=== PATIENT | male | born 1990 | race African-American/Black ===

== ENCOUNTER 2024-04-29 09:26 | Inpatient (IN) | payer OTHER ==
[~2024-04-29] VITALS: Ht 193 cm; Wt 105.0 kg
[2024-04-29 10:05] LABS: Basophils # (auto) 0 10 ^3/uL (0-0.2); Basophils % (auto) 0.3 % (0.0-2.0); Eosinophils # (auto) 0 10 ^3/uL (0-0.8); Eosinophils % (auto) 0.5 % (0.0-7.0); Hematocrit 42.6 % (41.0-53.0); Hemoglobin 14.5 g/dL (13.5-17.5); Lymphocytes # (auto) 0.3 10 ^3/uL (0.4-5.4); Lymphocytes % (auto) 3.2 % (10.0-50.0); Mean Corpuscular Hemoglobin 29.6 pg (28.0-32.0); Mean Corpuscular Hgb Conc. 34.2 g/dL (32.0-36.0); Mean Corpuscular Volume 86.6 fL (80.0-100.0); Monocytes # (auto) 0.8 10 ^3/uL (0-1.3); Monocytes % (auto) 8.8 % (0.0-12.0); Neutrophils # (auto) 8.1 10 ^3/uL (1.6-8.6); Neutrophils % (auto) 87.2 % (37.0-80.0); Nucleated Red Blood Cells % 0.1 %; Platelet Count (auto) 190 10^3/uL (140-450); Red Blood Cells 4.92 10^6/uL (4.5-5.90); Red Cell Distribution Width 11.8 % (11.8-14.3); White Blood Cell 9.3 10^3/uL (4.4-10.8)
--- NOTE | 2024-04-29 10:16 | ED.PDOC ---
History of Present Illness HPI Comments 33Y M with PMHx appendectomy presents to ED via EMS for chief complaint abd pain x1 day. Additional symptoms include cough, n/v/d, chills, headache, fatigue, and hiccups. Pt denies chest pain and SOB. Pt denies sick contact. No known allergies. Chief Complaint: Abdominal Pain Time Seen by MD: 09:30 Primary Care Provider: none Reviewed Notes: Packing Shed Supervisor Notes, Medications, Allergies Allergies: Coded Allergies: NO KNOWN ALLERGIES (Unverified , 04/29/24) Information Source: Patient, Emergency Med Personnel Mode of Arrival: EMS Severity: Moderate Timing: Days Duration: Since onset Prehospital treatment: Other Past Medical History PAST MEDICAL HISTORY: Denies Surgical History: Appendectomy Family History Family History: Unknown Social History Smoker: Non-Smoker Alcohol: Denies ETOH Use Drugs: Denies Drug Use Lives In: Home Constitutional: reports: chills, fatigue; denies: diaphoresis, fever, malaise, sweats, weakness, others EENTM: denies: blurred vision, double vision, ear bleeding, ear discharge, ear drainage, ear pain, ear ringing, eye pain, eye redness, hearing loss, mouth pain, mouth swelling, nasal discharge, nose bleeding, nose congestion, nose pain, photophobia, tearing, throat pain, throat swelling, voice changes, others Respiratory: reports: cough; denies: hemoptysis, orthopnea, SOB at rest, shortness of breath, SOB with excertion, stridor, wheezing, others Cardiovascular: denies: chest pain, dizzy spells, diaphoresis, Dyspnea on exertion, edema, irregular heart beat, left arm pain, lightheadedness, palpitations, PND, syncope, others Gastrointestinal: reports: abdominal pain, diarrhea, nausea, vomiting; denies: abdomen distended, blood streaked bowels, constipated, dysphagia, difficulty swallowing, hematemesis, melena, poor appetite, poor fluid intake, rectal bleeding, rectal pain, others Genitourinary: denies: burning, dysuria, flank pain, frequency, hematuria, incontinence, penile discharge, penile sore, pain, testicle pain, testicle swelling, urgency, others Neurological: reports: headache; denies: dizziness, fainting, left sided numbness, left sided weakness, numbness, paresthesia, pre-existing deficit, right sided numbness, right sided weakness, seizure, speech problems, tingling, tremors, weakness, others Musculoskeletal: denies: back pain, gout, joint pain, joint swelling, muscle pain, muscle stiffness, neck pain, others Integumetry: denies: bruises, change in color, change in hair/nails, dryness, laceration, lesions, lumps, rash, wounds, others Allergic/Immunocompromised: denies: Difficulty Healing, Frequent Infections, Hives, Itching, others Hematologic/Lymphatic: denies: anemia, blood clots, easy bleeding, easy bruising, swollen glands, others Endocrine: denies: excessive hunger, excessive sweating, excessive thirst, excessive urination, flushing, intolerance to cold, intolerance to heat, unexplained weight gain, unexplained weight loss, others Psychiatric: denies: anxiety, bipolar disorder, depression, hopeless, panic disorder, schizophrenia, sleepless, suicidal, others All Other Systems: Reviewed and Negative Physical Exam General Appearance: Moderate Distress, Normal HEENT: Normal ENT Inspection, Pharynx Normal, TMs Normal Neck: Full Range of Motion, Non-Tender, Normal, Normal Inspection Respiratory: Chest Non-Tender, Lungs Clear, No Accessory Muscle Use, No Respiratory Distress, Normal Breath Sounds Cardiovascular: No Edema, No JVD, No Murmur, No Gallop, Normal Peripheral Pulses, Tachycardia Breast Exam: Deferred Gastrointestinal: No Organomegaly, Non Tender, No Pulsatile Mass, Normal Bowel Sounds, Soft Genitalia: Deferred Pelvic: Deferred Rectal: Deferred Extremities: No calf tenderness, Normal capillary refill, Normal inspection, Normal range of motion, Non-tender, No pedal edema Musculoskeletal : Apperance: Normal Neurologic: Alert, sole stapler welt II-XII nml as Tested, No Motor Deficits, Normal Affect, Normal Mood, No Sensory Deficits Cerebellar Function: Normal Reflexes: Normal Skin: Dry, Normal Color, Warm Peripheral Pulses: 3+ Radial (R), 3+ Radial (L) Lymphatic: No Adenopathy Was a procedure done? Was a procedure done?: No Differential Dx Considerations may include: Gastroenteritis Electrolyte imbalance X-Ray, Labs, Meds, VS Vital Signs Date Time Temp Pulse Resp B/P (MAP) Pulse Ox O2 Delivery O2 Flow Rate FiO2 04/29/24 12:32 97 16 135/83 04/29/24 11:36 100.5 04/29/24 11:25 100.5 134 22 132/96 (108) 96 100.5 04/29/24 10:21 Room Air* 0 21 04/29/24 09:33 99.6 123 18 144/83 (103) 100 Lab Test 04/29/24 11:11 04/29/24 09:50 Range/Units Urine Opiates Screen Neg NEGATIVE Urine Fentanyl Screen Neg NEGATIVE Urine Barbiturates Screen Neg NEGATIVE Urine Phencyclidine Screen Neg NEGATIVE Urine Amphetamines Screen Neg NEGATIVE Urine Benzodiazepines Screen Neg NEGATIVE Urine Cocaine Screen Neg NEGATIVE Urine Cannabinoids Screen Neg NEGATIVE White Blood Count 9.3 4.4-10.8 10^3/uL Red Blood Count 4.92 4.5-5.90 10^6/uL Hemoglobin 14.5 13.5-17.5 g/dL Hematocrit 42.6 41.0-53.0 % Mean Corpuscular Volume 86.6 80.0-100.0 fL Mean Corpuscular Hemoglobin 29.6 28.0-32.0 pg Mean Corpuscular Hemoglobin Concent 34.2 32.0-36.0 g/dL Red Cell Distribution Width 11.8 11.8-14.3 % Platelet Count 190 140-450 10^3/uL Mean Platelet Volume 8.3 6.9-10.8 fL Neutrophils (%) (Auto) 87.2 H 37.0-80.0 % Lymphocytes (%) (Auto) 3.2 L 10.0-50.0 % Monocytes (%) (Auto) 8.8 0.0-12.0 % Eosinophils (%) (Auto) 0.5 0.0-7.0 % Basophils (%) (Auto) 0.3 0.0-2.0 % Neutrophils # (Auto) 8.1 1.6-8.6 10 ^3/uL Lymphocytes # (Auto) 0.3 L 0.4-5.4 10 ^3/uL Monocytes # (Auto) 0.8 0-1.3 10 ^3/uL Eosinophils # (Auto) 0 0-0.8 10 ^3/uL Basophils # (Auto) 0 0-0.2 10 ^3/uL Nucleated Red Blood Cells 0.1 % Sodium Level 132 L 136-145 mmol/L Potassium Level 4.1 3.5-5.1 mmol/L Chloride Level 98 98-107 mmol/L Carbon Dioxide Level 27 20-31 mmol/L Anion Gap 7 5-15 Blood Urea Nitrogen 7 L 9-23 mg/dL Creatinine 1.24 0.700-1.30 mg/dL Glomerular Filtration Rate Calc 78 >90 mL/min BUN/Creatinine Ratio 5.6 L 10.0-20.0 Serum Glucose 121 H 74-106 mg/dL Calcium Level 10.0 8.7-10.4 mg/dL Current Medications Medications (Trade) Dose Ordered Sig/Priscilla Route Start Time Stop Time Status Last Admin Sodium Chloride 1,000 ml @ 1,000 mls/hr Q1H ONCE IV 04/29/24 11:30 04/29/24 12:29 DC 04/29/24 11:34 Acetaminophen (Tylenol Tablet) 1,000 mg ONCE ONCE PO 04/29/24 11:45 04/29/24 11:46 DC 04/29/24 11:36 Sodium Chloride 1,000 ml @ 1,000 mls/hr Q1H ONCE IV 04/29/24 11:45 04/29/24 12:44 DC 04/29/24 11:45 Sodium Chloride 1,000 ml @ 150 mls/hr Q6H40M ONCE IV 04/29/24 11:45 04/29/24 18:24 04/29/24 11:45 Morphine Sulfate 4 mg ONCE ONCE IV 04/29/24 11:45 04/29/24 11:46 DC 04/29/24 12:32 Ondansetron HCl (Zofran) 4 mg ONCE ONCE IV 04/29/24 11:45 04/29/24 11:46 DC 04/29/24 12:30 Patient alert. Complaining of abdominal pain nausea vomiting. Tachycardia. Saturation pristine on room air. Ambulating. Abdomen is soft nontender. Establish intravenous access. Was given fluids. CT of the abdomen does not show any acute process. Continues to have discomfort. He does have mild fever. Time of 1ST Reevaluation: 10:00 Reevaluation 1ST: Unchanged Patient Education/Counseling: Diagnosis, Treatment Family Education/Counseling: No Family Present Additional Information The following tests were ordered, and results were reviewed by me: CBC, BMP, drug screen Additional Information was gathered from interviewing the following independent historians: EMS I discussed treatment and results with medical personnel. Departure 1 Departure Time of Disposition: 11:34 Impression: Primary Impression: Acute abdominal pain Additional Impressions: Gastroenteritis Tachycardia Disposition: ADMITTED INPATIENT Admit to: Med Surg Condition: Guarded Critical Care Note Critical Care Time?: Yes (45 min-critical care time only) Stability Stability form required: No Heart Score Heart Score: Heart Score Response (Comments) Value History Slightly Suspicious 0 EKG Normal 0 Age <45 0 Risk Factors No known risk factors 0 Troponin Normal limit 0 Total 0 I personally scribed for GISELLE WASHBURN MD ([email or web address]) on 04/29/24 at 10:16. Electronically submitted by Katja Sabillon ([employer]). I personally scribed for GISELLE WASHBURN MD ([email or web address]) on 04/29/24 at 10:46. Electronically submitted by Katja Sabillon ([employer]). GISELLE WASHBURN MD Apr 29, 2024 10:16
[2024-04-29 10:17] LABS: Potassium 4.1 mmol/L (3.5-5.1)
[2024-04-29 10:18] LABS: Anion Gap 7 (5-15); Carbon Dioxide 27 mmol/L (20-31)
[2024-04-29 10:23] LABS: BUN/Creatinine Ratio 5.6 (10.0-20.0)
[2024-04-29 10:39] LABS: Blood Urea Nitrogen 7 mg/dL (9-23); Chloride 98 mmol/L (98-107); Glucose 121 mg/dL (74-106); Sodium 132 mmol/L (136-145)
[2024-04-29] MEDS: SODIUM CHLORIDE 0.9% 1,000 ML IV ONE ×4 (11:34→16:58)
[2024-04-29] MEDS: ACETAMINOPHEN 325 MG TAB PO ONE (11:36)
[2024-04-29 12:14] LABS: Cannabinoid Screen, Urine Neg (NEGATIVE); Cocaine Screen, Urine Neg (NEGATIVE)
[2024-04-29 12:18] LABS: Amphetamine Screen, Urine Neg (NEGATIVE); Barbiturate Scree,Urine Neg (NEGATIVE); Benzodiazephine Screen, Urine Neg (NEGATIVE); Opiate Scree,Urine Neg (NEGATIVE); Phencyclidine Screen, Urine Neg (NEGATIVE)
[2024-04-29] MEDS: ONDANSETRON HCL 4 MG/2 ML VIAL IV ONE (12:30)
[2024-04-29] MEDS: MORPHINE SULFATE 4 MG/ML SYR/VIAL IV ONE (12:32)
--- NOTE | 2024-04-29 14:30 | DVH ---
CHEST RADIOGRAPH Indication: sob Technique: Single frontal view of the chest was obtained Comparison: None FINDINGS: Lines and Tubes: None Lungs: No focal consolidation. Mild diffuse interstitial prominence. Bronchovascular crowding due to low lung volumes. Pleura: No effusion. No pneumothorax. Cardiomediastinal contours: Mild cardiomegaly. Bones: No acute osseous abnormality. IMPRESSION: Bronchovascular crowding due to low lung volumes. Otherwise, no evidence of acute cardiopulmonary di sease
--- NOTE | 2024-04-29 14:31 | DVH ---
CT ABDOMEN AND PELVIS WITHOUT CONTRAST CLINICAL HISTORY: enteritis TECHNIQUE: Multiple contiguous axial images of the abdomen and pelvis without intravenous contrast. The images were reformatted degenerate coronal and sagittal reconstructions. All CT scans at this medical facility are performed using dose modulation techniques as appropriate t o a performed exam including the following:Automated exposure control was utilized; adjustment of the MA and/or KV according to patient size; and use of iterative reconstruction technique. Radiation Dose Information: CT Dose: CTDI volume is 19.17 mGy. Dose-length product is 1128.83 mGy*cm Comparison: None FINDINGS: Evaluation of the abdomen and pelvis is limited without intravenous contrast. The liver is prominent in size with diffuse fatty infiltration of the liver. There is no gross hepati c lesion. The gallbladder, pancreas, kidneys, adrenal glands, and spleen appear within normal limi ts. There is no gross evidence of abdominal lymphadenopathy. There is no free fluid or free air. There is a small fat containing umbilical hernia. The stomach grossly appears unremarkable. The small and large bowel loops demonstrate normal caliber .. There are few scattered diverticula in the distal colon without evidence of acute diverticulitis. The abdominal aorta and IVC appear within normal limits. The bladder appears unremarkable for the degree of distention. Pelvic organ appears within normal sheehan its. There is no gross evidence of a pelvic mass. There is no free fluid collection. Lung bases are clear. There is no acute osseous abnormality. IMPRESSION: 1. There is no acute process in the abdomen and pelvis. 2. Hepatomegaly with diffuse hepatic steatosis. 3. Scattered diverticula in the distal colon. HS:Y
[2024-04-29] MEDS: cefTRIAXone 1GM/50ML D5W 50 ML IV ONE (16:52)
[2024-04-29 17:00] VITALS: TEMP 100; O2SAT 96
[2024-04-29] MEDS ORDERED: MORPHINE SULFATE INJ 2 MG/ml SYRG IV PRN ×2 (17:15→17:45)
[2024-04-29] MEDS ORDERED: ACETAMINOPHEN 325 MG TAB PO PRN (17:15)
[2024-04-29] MEDS ORDERED: ONDANSETRON HCL 4 MG/2 ML VIAL IV PRN (17:15)
[2024-04-29] MEDS: SODIUM CHLORIDE 0.9% 1,000 ML IV SCH (17:15)
[2024-04-29] MEDS ORDERED: DOCUSATE SOD 100 MG CAP PO PRN (17:15)
[2024-04-29] MEDS: ONDANSETRON HCL 4 MG/2 ML VIAL IV PRN (17:26)
[2024-04-29 17:30] VITALS: BP 143/90; PULSE 116; RESP 21
[2024-04-29] MEDS: MORPHINE SULFATE INJ 2 MG/ml SYRG IV PRN (17:30)
--- NOTE | 2024-04-29 17:42 | DVHHP2 ---
History of Present Illness Reason for Visit: Acute abdominal pain History of Present Illness The patient is a 33-year-old male with past medical history of appendicitis status post appendectomy who presented to [facility] ED with complaint of acute abdominal pain. Patient reports symptoms progressively get worse with fatigue, cough, chills, headache, diarrhea, nausea, vomiting, getting worse that prompted this visit. Patient was seen and evaluated in the ED, laboratory data shows WBC 9.3, platelets 190, sodium 132, potassium 4.1, BUN 7, creatinine 1.24, GFR 78, glucose 121, blood pressure 135/83, heart rate 134 trending down to 96, temperature 100.5 F, O2 saturation 96% on room air. Abdome n/pelvis CT showed no acute process of the abdomen or pelvis. Patient was started on IV antibiotic regimen Rocephin, please see medication orders section in the computer. On my assessment, patient denies chest pain, no headache, no dizziness, no diaphoresis, no shortness a breath, no diarrhea, nausea or vomiting at this moment, no fever, no chills. Patient was admitted for further evaluation and medical management. Past Medical History Appendicitis Past Surgical History Appendectomy Family History Reviewed, noncontributory to the management of this case. Past Social History The patient lives at home, denies smoking, alcohol or illicit drugs abuse. Review of Systems Constitutional: Yes: Fever, Chills, Other (Fatigue); No: Sweats, Weakness, Malaise Eyes: No: Pain, Vision change, Conjunctivae inflammation, Eyelid inflammation, Other, Redness ENT: No: Ear pain, Ear discharge, Nose pain, Nose discharge, Nose congestion, Mouth pain, Mouth swelling, Throat pain, Throat swelling, Other Respiratory: Cough; No: Dry, Shortness of breath, SOB with excertion, Wheezing, Hemoptysis, Pleuritic Pain, Sputum, Wheezing, Other Cardiovascular: No: Chest Pain, Palpitations, Orthopnea, Paroxysmal Noc. Dyspnea, Edema, Lt Headedness, Other Gastrointestinal: Nausea, Vomiting, Abdominal Pain, Diarrhea; No: Constipation, Melena, Hematochezia, Other Genitourinary: No Dysuria, No Frequency, No Incontinence, No Hematuria, No Retention, No Other Musculoskeletal: No: other, neck pain, shoulder pain, arm pain, back pain, hand pain, leg pain, foot pain Skin: No: Rash, Lesions, Jaundice, Bruising, Other Neurological: No: Weakness, Numbness, Incoordination, Change in speech, Confusion, Seizures, Other Allergies: Coded Allergies: NO KNOWN ALLERGIES (Unverified , 04/29/24) Medications Current Medications Medications Dose Ordered Sig/Priscilla Route Start Time Stop Time Status Last Admin Dose Admin Ceftriaxone Sodium 50 ml @ 100 mls/hr DAILY@09 IV 04/30/24 09:00 Metronidazole 100 ml @ 100 mls/hr Q8HR IV 04/29/24 22:00 Pantoprazole Sodium 40 mg DAILY IV 04/30/24 10:00 Sodium Chloride 1,000 ml @ 60 mls/hr [id number] IV 04/29/24 17:15 Acetaminophen/ Hydrocodone Bitart 1 tab Q4HP PRN PO 04/29/24 17:15 Ondansetron HCl 4 mg Q4HP PRN IV 04/29/24 17:15 Docusate Sodium 100 mg BIDPRN PRN PO 04/29/24 17:15 Acetaminophen 650 mg Q6HP PRN PO 04/29/24 17:15 Morphine Sulfate 2 mg Q4HPRN PRN IV 04/29/24 17:15 Exam Vital Signs Vital Signs Date Time Temp Pulse Resp B/P (MAP) Pulse Ox O2 Delivery O2 Flow Rate FiO2 04/29/24 17:30 116 21 143/90 04/29/24 15:00 100.0 96 100.0 04/29/24 10:21 Room Air* 0 21 General Appearance: Alert, Oriented X3, Cooperative, No acute distress HEENT: Atraumatic, PERRLA, EOMI, Mucous membr. moist/pink Respiratory: Clear to auscultation, Normal air movement Cardiovascular: Regular rate, Normal S1, Normal S2, No murmurs Abdominal: Normal bowel sounds, Soft, No hepatospenomegaly, No masses, Other (Reports tenderness) Extremities: No clubbing, No cyanosis, No edema, Normal pulses, No tenderness/swelling Skin: No rashes, No breakdown, No significant lesion Neuro: Normal gait, Normal speech, Strength at 5/5 X4 ext, Normal tone, Sensation intact, Cranial nerves 3-12 NL, Reflexes 2+ Psych/Mental Status: Mental status NL, Mood NL Labs/Xrays Labs Test 04/29/24 11:11 04/29/24 09:50 Range/Units Urine Opiates Screen Neg NEGATIVE Urine Fentanyl Screen Neg NEGATIVE Urine Barbiturates Screen Neg NEGATIVE Urine Phencyclidine Screen Neg NEGATIVE Urine Amphetamines Screen Neg NEGATIVE Urine Benzodiazepines Screen Neg NEGATIVE Urine Cocaine Screen Neg NEGATIVE Urine Cannabinoids Screen Neg NEGATIVE White Blood Count 9.3 4.4-10.8 10^3/uL Red Blood Count 4.92 4.5-5.90 10^6/uL Hemoglobin 14.5 13.5-17.5 g/dL Hematocrit 42.6 41.0-53.0 % Mean Corpuscular Volume 86.6 80.0-100.0 fL Mean Corpuscular Hemoglobin 29.6 28.0-32.0 pg Mean Corpuscular Hemoglobin Concent 34.2 32.0-36.0 g/dL Red Cell Distribution Width 11.8 11.8-14.3 % Platelet Count 190 140-450 10^3/uL Mean Platelet Volume 8.3 6.9-10.8 fL Neutrophils (%) (Auto) 87.2 H 37.0-80.0 % Lymphocytes (%) (Auto) 3.2 L 10.0-50.0 % Monocytes (%) (Auto) 8.8 0.0-12.0 % Eosinophils (%) (Auto) 0.5 0.0-7.0 % Basophils (%) (Auto) 0.3 0.0-2.0 % Neutrophils # (Auto) 8.1 1.6-8.6 10 ^3/uL Lymphocytes # (Auto) 0.3 L 0.4-5.4 10 ^3/uL Monocytes # (Auto) 0.8 0-1.3 10 ^3/uL Eosinophils # (Auto) 0 0-0.8 10 ^3/uL Basophils # (Auto) 0 0-0.2 10 ^3/uL Nucleated Red Blood Cells 0.1 % Sodium Level 132 L 136-145 mmol/L Potassium Level 4.1 3.5-5.1 mmol/L Chloride Level 98 98-107 mmol/L Carbon Dioxide Level 27 20-31 mmol/L Anion Gap 7 5-15 Blood Urea Nitrogen 7 L 9-23 mg/dL Creatinine 1.24 0.700-1.30 mg/dL Glomerular Filtration Rate Calc 78 >90 mL/min BUN/Creatinine Ratio 5.6 L 10.0-20.0 Serum Glucose 121 H 74-106 mg/dL Calcium Level 10.0 8.7-10.4 mg/dL PATIENT: ROSA ARECHIGA ACCT: [id number] UNIT: [id number] : 1990 LOC: ER ROOM / BED: / AGE / SEX: 33 / M ADM STATUS: REG ER SERVICE 1331 ORDERING PHYSICIAN: GISELLE WASHBURN MD PROCEDURE(s): ABPL - CT AB PEL WO CON-NO ORAL OR IV REASON: enteritis ORDER NUMBER(s): [id number], ACCESSION NUMBER(s): [id number] CT ABDOMEN AND PELVIS WITHOUT CONTRAST CLINICAL HISTORY: enteritis TECHNIQUE: Multiple contiguous axial images of the abdomen and pelvis without intravenous contrast. The images were reformatted degenerate coronal and sagittal reconstructions. All CT scans at this medical facility are performed using dose modulation techniques as appropriate to a performed exam including the following:Automated exposure control was utilized; adjustment of the MA and/or KV according to patient size; and use of iterative reconstruction technique. Radiation Dose Information: CT Dose: CTDI volume is 19.17 mGy. Dose-length product is 1128.83 mGy*cm Comparison: None FINDINGS: Evaluation of the abdomen and pelvis is limited without intravenous contrast. The liver is prominent in size with diffuse fatty infiltration of the liver. There is no gross hepatic lesion. The gallbladder, pancreas, kidneys, adrenal glands, and spleen appear within normal limits. There is no gross evidence of abdominal lymphadenopathy. There is no free fluid or free air. There is a small fat containing umbilical hernia. The stomach grossly appears unremarkable. The small and large bowel loops demonstrate normal caliber.. There are few scattered diverticula in the distal colon without evidence of acute diverticulitis. The abdominal aorta and IVC appear within normal limits. The bladder appears unremarkable for the degree of distention. Pelvic organ appears within normal limits. There is no gross evidence of a pelvic mass. There is no free fluid collection. Lung bases are clear. There is no acute osseous abnormality. IMPRESSION: 1. There is no acute process in the abdomen and pelvis. 2. Hepatomegaly with diffuse hepatic steatosis. 3. Scattered diverticula in the distal colon. ORDERING PHYSICIAN: GISELLE WASHBURN MD PROCEDURE(s): CXRP - CHEST PORTABLE REASON: sob ORDER NUMBER(s): [id number], ACCESSION NUMBER(s): [id number] CHEST RADIOGRAPH Indication: sob Technique: Single frontal view of the chest was obtained Comparison: None FINDINGS: Lines and Tubes: None Lungs: No focal consolidation. Mild diffuse interstitial prominence. Bronchovascular crowding due to low lung volumes. Pleura: No effusion. No pneumothorax. Cardiomediastinal contours: Mild cardiomegaly. Bones: No acute osseous abnormality. IMPRESSION: Bronchovascular crowding due to low lung volumes. Otherwise, no evidence of acute cardiopulmonary disease. Assessment/Plan Assessment/Plan Acute abdominal pain Gastroenteritis Tachycardia Hyponatremia Fever, unspecified Plan 1. Admit to med surge unit 2. Breathing treatment 3. Pain control management 4. IV antibiotic management 5. Management of fluids and electrolytes 6. Consultation for hospitalist 7. Diagnostic test abdomen/pelvis CT 8. DVT prophylaxis on SCDs 9. Repeat labs CBC, CMP in a.m. 10. Continue with current medical management 11. Treatment plan discussed with patient and RN. Patient verbalized understanding. Plan discussed with: Patient, Other (RN) My Orders Orders - NANDO GUAMAN DNP Procedure Category Date Status Time Ceftriaxone 1gm/50ml PHA 04/30/24 In Process D5w (Rocephin) 09:00 Metronidazole PHA 04/29/24 In Process 500mg/100ml (Flagyl 22:00 Pantoprazole PHA 04/30/24 In Process (Protonix) 10:00 Allergies CHRISTINA 04/29/24 In Process 17:08 Code Status CODE 04/29/24 Transmitted 17:08 Sodium Chloride 0.9% PHA 04/29/24 In Process 17:15 Oxygen Per Hour RT 04/29/24 Transmitted 17:08 Hydrocodone-Acet PHA 04/29/24 In Process 5/325mg Tab ([place] 17:15 Ondansetron Hcl PHA 04/29/24 In Process (Zofran) 17:15 Docusate Sodium PHA 04/29/24 In Process Capsule (Colace 17:15 Complete Blood Count LAB 04/30/24 Verified 04:00 Comprehensive LAB 04/30/24 Verified Metabolic Panel 04:00 Condition: Serious CHRISTINA 04/29/24 In Process 17:08 Acetaminophen Tablet PHA 04/29/24 In Process (Tylenol Tablet) 17:15 Clear Liq Diet DIET 12/24/24 Transmitted Dinner Bedrest With Bathroom [facility] 04/29/24 In Process Privileg 17:08 Morphine Sulfate [facility] 04/29/24 In Process Injection 17:15 Sequential [facility] 04/29/24 In Process Compression Device Admit ADMIT 04/29/24 Verified 17:41 Nitroglycerin [facility] 04/29/24 Verified Sublingual (Ntrostat 17:45 Morphine Sulfate [facility] 04/29/24 Verified Injection 17:45 Notify Md Of Changes [facility] 04/29/24 Verified From Base 17:41 Emergency Dysrhythmia [facility] 04/29/24 Verified Protocol 17:41 Oxygen By Nasal RT 04/29/24 Verified Cannula 17:41 Problem List: (1) Acute abdominal pain (2) Gastroenteritis (3) Hyponatremia (4) Tachycardia (5) Fever, unspecified Date of Service: Apr 29, 2024 Billing Provider: NANDO GUAMAN DNP Common Visit Codes: [id number] INP/OBS CARE (HIGH) NANDO GUAMAN DNP Apr 29, 2024 17:42
[2024-04-29] MEDS ORDERED: NITROGLYCERIN 0.4 MG SL TAB SL PRN (17:45)
[2024-04-29] MEDS: metroNIDAZOLE 500MG/100ML 100 ML IV ONE (17:53)
[2024-04-29] MEDS: HYDROcodone-ACET 5/325MG TAB PO PRN (21:32)
[2024-04-29] MEDS ORDERED: metroNIDAZOLE 500MG/100ML 100 ML IV SCH (22:00)
[2024-04-30] MEDS ORDERED: cefTRIAXone 1GM/50ML D5W 50 ML IV SCH (09:00)
[2024-04-30] MEDS ORDERED: PANTOPRAZOLE 40 MG/10 ML VIAL INJ IV SCH (10:00)
== END 2024-04-29 22:00 | disposition left against medical advice (07) | DRG 249 ==
LOC: EDBD 09:26 → ER 09:26 → OVERFLOW 17:41
PROVIDERS: ADMIT Nurse Practitioner Family; ATTEND Nurse Practitioner Family
DX: K52.9 Noninfective gastroenteritis and colitis, unspecified (principal); E87.1 Hypo-osmolality and hyponatremia; Z90.49 Acquired absence of other specified parts of digestive tract
CPT/HCPCS: 36415; 71045; 74176; 80048; 80307; 85025; 99291; G0378; J2405; J3490